=== PATIENT | female | born 1995 | race Caucasian/White ===

== ENCOUNTER 2020-02-14 23:31 | Emergency (ER) | payer BC ==
[2020-02-15] MEDS ORDERED: METOCLOPRAMIDE HCL INJ/PF 10 MG/2 ML SDV IV ONE (00:29)
[2020-02-15] MEDS ORDERED: HYDROMORPHONE HCL INJ/PF 2 MG/ML AMPULE IV ONE (00:29)
[2020-02-15] MEDS ORDERED: NORMAL SALINE 1000 ML 1,000 ML IV ONE (00:31)
--- NOTE | 2020-02-15 00:35 | ER Document Report ---
ED Medical Screen (RME) - General Chief Complaint: Abdominal Pain Stated Complaint: ABDOMINAL PAIN Time Seen by Provider: 02/15/20 00:28 Mode of Arrival: Ambulatory Information source: Patient Notes: 24-year-old female with sudden onset severe left lower quadrant and side and back pain. Some nausea and vomiting. NO Fevers or chills. History of ovarian cysts in the past. General moderate distress, very uncomfortable Abdomen left lower quadrant tenderness palpation. Neuro no focal deficits I have greeted and performed a rapid initial assessment of this patient. A comprehensive ED assessment and evaluation of the patient, analysis of test results and completion of the medical decision making process will be conducted by additional ED providers. - Related Data Allergies/Adverse Reactions: No Known Allergies Allergy (Unverified 02/15/20 00:26) Home Medications: control Past Medical History - Social History Frequency of alcohol use: None Drug Abuse: None Physical Exam - Vital signs Vitals: Temp Pulse Resp BP Pulse Ox 97.7 F 86 22 H 141/85 H 99 02/14/20 23:52 02/14/20 23:52 02/14/20 23:52 02/14/20 23:52 02/14/20 23:52 Course - Vital Signs Vital signs: Temp Pulse Resp BP Pulse Ox 97.7 F 86 22 H 141/85 H 99 02/14/20 23:52 02/14/20 23:52 02/14/20 23:52 02/14/20 23:52 02/14/20 23:52
[2020-02-15 00:54] LABS: ABSOLUTE BASOPHILS # (AUTO) 0.1 10^3/uL (0.0-0.2); ABSOLUTE MONOCYTES (AUTO) 0.8 10^3/uL (0.1-1.4); ABSOLUTE NEUT (AUTO) 14.5 10^3/uL (1.7-8.2); BASOPHILS % (AUTO) 0.3 % (0-2); EOSINOPHILS % (AUTO) 0.2 % (0-6); HEMOGLOBIN 13.3 g/dL (12.0-15.5); LYMPHOCYTES % (AUTO) 16.2 % (13-45); MEAN CORPUSCULAR HEMOGLOBIN 30.1 pg (27.0-33.4); MEAN CORPUSCULAR HGB CONC 34.9 g/dL (32.0-36.0); MEAN CORPUSCULAR VOLUME 86 fl (80-97); MONOCYTES % (AUTO) 4.3 % (3-13); PLATELET COUNT 332 10^3/uL (150-450); RED CELL DISTRIBUTION WIDTH 12.6 % (11.5-14.0); TOTAL CELLS COUNTED % (AUTO) 100 %; WHITE BLOOD COUNT 18.3 10^3/uL (4.0-10.5)
[2020-02-15 01:24] LABS: ALBUMIN 4.8 g/dL (3.5-5.0); ALKALINE PHOSPHATASE 58 U/L (38-126); ANION GAP 12 (5-19); ASPARTATE AMINO TRANSFERASE 25 U/L (14-36); BILIRUBIN,DIRECT 0.2 mg/dL (0.0-0.4); BILIRUBIN,TOTAL 0.6 mg/dL (0.2-1.3); BLOOD UREA NITROGEN 10 mg/dL (7-20); CALCIUM 9.9 mg/dL (8.4-10.2); CARBON DIOXIDE 23 mmol/L (22-30); CHLORIDE 105 mmol/L (98-107); GLUCOSE 164 mg/dL (75-110); POTASSIUM 3.8 mmol/L (3.6-5.0)
--- NOTE | 2020-02-15 01:47 | RADIOLOGY REPORT (SQ) ---
CT ABDOMEN AND PELVIS WITH INTRAVENOUS CONTRAST: 02/15/2020 12:43 AM INDUSTRI[employer] METHODS CONSULTANT HISTORY: 24-year old with left lower quadrant abdominal pain. COMPARISON: None available TECHNIQUE: Axial contiguous images were obtained from the lung bases to the proximal femurs with intravenous intravenous contrast administered. Sagittal and coronal reconstructions were also obtained and reviewed. This exam was performed according to our departmental dose-optimization program, which includes automated exposure control, adjustment of the mA and/or KV according to the patient's size and/or use of iterative reconstruction technique. FINDINGS: No focal consolidative airspace opacities are seen. No discrete pleural effusions are seen. The visualized hepatic parenchyma is unremarkable. No focal enhancing lesion is seen. The gallbladder demonstrates no evidence of calcified gallstones. The spleen is normal in size. The pancreas is unremarkable. The bilateral adrenal glands appear unremarkable. There is mild to moderate left hydroureteronephrosis, with suggestion of a 2 mm calculus at the distal left ureterovesicular junction. There is stranding around the left kidney, and superimposed infection is not excluded. No calcifications are seen within the urinary bladder. There is decreased enhancement of the left kidney comparison to the right with delayed excretion of contrast. No other renal or ureteral calculi are seen. The urinary bladder is mildly distended, and appears grossly unremarkable. The uterus is present. The stomach is not well distended. The small bowel loops appear unremarkable. No pericolonic inflammatory stranding is seen. The appendix appears unremarkable. There is no evidence of pneumoperitoneum or free fluid. There is a metallic umbilical jewelry present. The aorta and IVC appear normal in size. No significantly enlarged lymph nodes are seen in the abdomen or pelvis. Review of the bone show no evidence of any suspicious lytic or blastic lesions. IMPRESSION: There is mild to moderate left hydroureteronephrosis, with suggestion of a 2 mm calculus at the distal left ureterovesicular junction. There is stranding around the left kidney, and superimposed infection is not excluded.
[2020-02-15 02:56] VITALS: BP 121/76
[2020-02-15 04:48] LABS: APPEARANCE,URINE CLEAR; BILIRUBIN,URINE NEGATIVE (NEGATIVE); COLOR,URINE YELLOW; GLUCOSE, URINE NEGATIVE (NEGATIVE); KETONES,URINE TRACE mg/dL (NEGATIVE); PROTEIN,URINE NEGATIVE (NEGATIVE); UROBILINOGEN,URINE NEGATIVE mg/dL (<2.0)
[2020-02-15 04:50] LABS: URINE SPECIFIC GRAVITY > 1.060
[2020-02-15] MEDS ORDERED: KETOROLAC TROMETHAMINE INJ/PF 30 MG/1 ML SDV IV ONE (06:12)
--- NOTE | 2020-02-15 06:18 | ER Document Report ---
ED General - General Chief Complaint: Abdominal Pain Stated Complaint: ABDOMINAL PAIN Time Seen by Provider: 02/15/20 00:28 Primary Care Provider: TAMANNA CARRASQUILLO PA-C [Primary Care Provider] - Follow up as needed POINT,FRACISCO Dinh MD [NO LOCAL MD] - Follow up as needed Mode of Arrival: Ambulatory Notes: Young 24-year-old female presents with left flank pain abrupt onset this morning, nausea, different and worse than ovarian cyst in the past. Never had kidney stone or infection. No fevers. No dysuria or hematuria. - Related Data Allergies/Adverse Reactions: No Known Allergies Allergy (Unverified 02/15/20 00:26) Home Medications: control Past Medical History - General Information source: Patient - Social History Smoking Status: Never Smoker Frequency of alcohol use: None Drug Abuse: None Family History: None Patient has homicidal ideation: No Review of Systems - Review of Systems Notes: REVIEW OF SYSTEMS GEN: Denies fever, chills, weight loss ENT: Denies sore throat, nasal discharge, ear pain EYES: Denies blurry vision, eye pain, discharge CV: Denies chest pain, palpitations, edema RESP: Denies cough, shortness of breath, wheezing GI: See HPI MSK: Denies joint pain/swelling, edema, SKIN: Denies rash, skin lesions LYMPH: Denies swollen glands/lymph nodes NEURO: Denies headache, focal weakness or numbness, dizziness PSYCH: Denies depression, suicidal or homicidal ideation PHYSICAL EXAMINATION General: No acute distress, well-nourished Head: Atraumatic, normocephalic ENT: Mouth normal, oropharynx moist, no exudates or tonsillar enlargement Eyes: Conjunctiva normal, pupils equal, lids normal Neck: No JVD, supple, no guarding CVS: Normal rate, regular rhythm, no murmurs Resp: No resp distress, equal and normal breath sounds bilaterally GI: Nondistended, soft, no tenderness to palpation, no rebound or guarding Ext: No deformities, no edema, normal range of motion in upper and lower ext Back: No CVA or midline TTP Skin: No rash, warm Lymphatic: No lymphadeopathy noted Neuro: Awake, alert. Face symmetric. GCS 15. Physical Exam - Vital signs Vitals: Temp Pulse Resp BP Pulse Ox 97.7 F 86 22 H 141/85 H 99 02/14/20 23:52 02/14/20 23:52 02/14/20 23:52 02/14/20 23:52 02/14/20 23:52 Course - Re-evaluation Re-evalutation: 02/15/20 15:34 Healthy young well-appearing female presenting with flank pain normal vital signs. Is been in the ED essentially all my got a single dose of Dilaudid and was evaluated several hours later by me when I got to my shift By that time she had labs which showed leukocytosis urine which shows hematuria only with no signs of infection, and a CT showing impacted left small kidney stone with mild hydro- Given his constellation of findings I think she is safe for discharge after a dose of Toradol as she has no tenderness now is already tolerating p.o. in the waiting room We will cover with oral antibiotics but no signs of sepsis or need for IV Rocephin admission or urgent urologic consultation Given thuyer prescribed bevy of outpatient medication including Flomax Zofran Motrin oxycodone and cefuroxime Patient and mother are okay with this plan will follow up with urology I have discussed with the patient there likely diagnosis, aftercare plan, follow-up plans and my usual and customary return precautions. They verbalized understanding of this. - Vital Signs Vital signs: Temp Pulse Resp BP Pulse Ox 97.8 F 80 16 121/76 100 02/15/20 02:51 02/15/20 02:51 02/15/20 02:51 02/15/20 02:51 02/15/20 02:51 - Laboratory Result Diagrams: 02/15/20 00:39 02/15/20 00:39 Laboratory results interpreted by me: 02/15/20 02/15/20 02/15/20 00:39 00:39 03:58 WBC 18.3 H Absolute Neuts (auto) 14.5 H Seg Neutrophils % 79.0 H Glucose 164 H Urine Ketones TRACE H Urine Blood LARGE H Discharge - Discharge Clinical Impression: Renal colic on left side Condition: Good Disposition: HOME, SELF-CARE Instructions: Kidney Stone ([facility]), Toradol Injection ([facility]) Prescriptions: Tamsulosin HCl [Flomax] 0.4 mg PO QHS #5 cap.er.24h Oxycodone HCl [Oxy-Ir 5 mg Tablet] 5 mg PO Q4HP PRN #13 tab PRN Reason: Cefuroxime Axetil [Ceftin 500 mg Tablet] 1 tab PO BID #20 tablet Ibuprofen [Motrin 600 Mg Tablet] 600 mg PO TID #15 tablet Ondansetron [Zofran Odt 4 mg Tablet] 1 - 2 tab PO Q4H PRN #15 tab.rapdis PRN Reason: For Nausea/Vomiting Referrals: TAMANNA CARRASQUILLO PA-C [Primary Care Provider] - Follow up as needed NIDHI,FRACISCO Dinh MD [NO LOCAL MD] - Follow up as needed
== END 2020-02-15 06:41 | disposition home or self-care (01) ==
LOC: ER 23:31
DX: N23 Unspecified renal colic (principal); N13.30 Unspecified hydronephrosis; R11.0 Nausea; D72.829 Elevated white blood cell count, unspecified; R31.9 Hematuria, unspecified; Z87.42 Personal history of other diseases of the female genital tract; Z79.3 Long term (current) use of hormonal contraceptives
CPT/HCPCS: 99285; 96361; 96374; 96375; 36415; 84702; 85025; 80053; 81001; 74177; J1885; J2765; J1170; J7030